=== PATIENT | male | born 1990 | race Hispanic/Latino ===

== ENCOUNTER 2018-01-16 23:51 | Observation (INO) | payer SELFPAY ==
[~2018-01-16] VITALS: Ht 182.9 cm; Wt 84.4 kg
[2018-01-17] MEDS ORDERED: SODIUM CHLORIDE 0.9% 1000ML 1,000 ML ONE (00:17)
[2018-01-17] MEDS ORDERED: KETOROLAC TROMETHAMINE 30 MG/ML VIAL ONE (00:17)
[2018-01-17] MEDS ORDERED: SODIUM CHLORIDE 0.9% 1000ML 1,000 ML IV STA (00:19)
[2018-01-17] MEDS ORDERED: HYDROMORPHONE 1MG/1ML INJ IV STA (00:19)
[2018-01-17] MEDS ORDERED: PANTOPRAZOLE 40 MG 10ML VIAL IV STA (00:19)
[2018-01-17] MEDS ORDERED: KETOROLAC TROMETHAMINE 30 MG/ML VIAL IV STA (00:19)
[2018-01-17] MEDS ORDERED: ONDANSETRON HCL 4 MG ORAL DISINTEGRATING TAB PO ONE (00:30)
[2018-01-17 00:31] LABS: BASOPHILS % 0.2 % (0.0-1.0); EOSINOPHILS % 0.1 % (0.0-6.0); HEMATOCRIT 40.3 % (38.2-49.6); HEMOGLOBIN 14.4 g/dL (14.0-18.0); LYMPHOCYTES # (AUTO) 2.3 (1.0-3.2); LYMPHOCYTES % 17.7 % (18.0-39.1); MEAN CORPUSCULAR HEMOGLOBIN 32.3 pg (28-32); MEAN CORPUSCULAR HGB CONC 35.7 g/dL (31-35); MEAN CORPUSCULAR VOLUME 90.4 fL (81-99); MONOCYTES # (AUTO) 0.6 (0.2-0.8); MONOCYTES % 4.3 % (4.4-11.3); NEUTROPHILS % 77.3 % (38.7-80.0); PLATELET COUNT 259 x10e3/uL (140-360); RED BLOOD COUNT 4.46 x10e6/uL (4.3-5.7); RED CELL DISTRIBUTION WIDTH 11.8 % (11.7-14.4)
[2018-01-17 00:54] LABS: ALANINE AMINOTRANSFERASE 28 IU/L (0-55); ALBUMIN 4.4 g/dL (3.5-5.0); ALBUMIN/GLOBULIN RATIO 1.5 (0.8-2.0); ALKALINE PHOSPHATASE 67 IU/L (40-150); ANION GAP 14.9 mmol/L (8-16); BLOOD UREA NITROGEN 19 mg/dL (7-26); BUN/CREATININE RATIO 15 (6-25); CALCIUM 9.6 mg/dL (8.4-10.2); CARBON DIOXIDE 25 mmol/L (22-29); CHLORIDE 102 mmol/L (98-107); EST GLOMERULAR FILTRATION RATE > 60 ML/MIN (60-); GLUCOSE 116 mg/dL (74-118); POTASSIUM 3.9 mmol/L (3.5-5.1); SODIUM 138 mmol/L (136-145)
[2018-01-17 00:59] LABS: MAGNESIUM 1.2 MG/DL (1.3-2.1)
[2018-01-17] MEDS ORDERED: DIAZEPAM 5 MG TAB PO STA (01:09)
--- NOTE | 2018-01-17 01:51 | Diagnostic Imaging Report ---
History: Low-back pain radiates down left lower extremity. Comparison studies: None Technique: Axial images were obtained through the lumbar spine from L1-S1. Coronal and sagittal images reconstructed from the axial data. Intravenous contrast: None Findings: The usual 5 non-rib bearing lumbar vertebral bodies are present. Alignment: Normal lordosis. No scoliosis. Soft tissues: No abnormalities. Paraspinal muscles: Unremarkable. Sacroiliac joints: No degenerative changes. Vertebrae: No fractures, infection or neoplasm. Degenerative changes: L1-L2: No abnormalities. L2-L3: No abnormalities. L3-L4: Disc bulge with superimposed 5.5 mm central/left paracentral disc protrusion effaces and indents anterior thecal sac asymmetrically and results in mild canal stenosis. Possible left lateral recess stenosis. No significant foraminal stenosis L4-L5: Disc bulge asymmetric to left without significant canal stenosis. Mild bilateral facet arthrosis. Mild bilateral foraminal stenosis. L5-S1: No abnormalities. IMPRESSION: 1. No acute lumbar spine fracture. 2. Disc bulge with superimposed 5.5 mm central/left paracentral disc protrusion results in mild canal stenosis with possible left lateral recess stenosis. This can be further evaluated with MRI of the lumbar spine without contrast. 3. Ligament, spinal cord and or vascular abnormalities cannot be excluded on the basis of this examination. Signed by: Dr. Josey Perez M.D. on 01/17/2018 1:48 AM
[2018-01-17] MEDS ORDERED: IOPAMIDOL 370 MG/ML 200 ML INFUS..BTL INJ ONE (02:13)
[2018-01-17] MEDS ORDERED: SODIUM CHLORIDE 0.9% 50ML 50 ML ONE (02:13)
[2018-01-17] MEDS ORDERED: SODIUM CHLORIDE 0.9% 1000ML 1,000 ML IV SCH (02:30)
[2018-01-17] MEDS ORDERED: HYDROMORPHONE 1MG/1ML INJ IV PRN (02:30)
[2018-01-17] MEDS ORDERED: MAGNESIUM SULFATE 2GM/50ML 50 ML IV ONE (02:30)
--- OUTSIDE RECORDS SUMMARY | 2018-01-17 02:41 | XMS REPORT ---
Author Author [facility] Address Unknown Phone Unavailable Care Team Providers Care Adventure Challenge Instructor Name Role Phone UNKNOWN, REFFERING PP Unavailable KARLENE SANDRA Unavailable Unavailable Problems This patient has no known problems. Allergies, Adverse Reactions, Alerts This patient has no known allergies or adverse reactions. Medications This patient has no known medications. Encounters Start Date/Time End Date/Time Encounter Type Admission Type Attending Clinicians Care Facility Care Department Encounter ID 2017-09-28 09:25:00 2017-09-28 09:25:00 Emergency E [facility] [id number] Results Test Description Test Time Test Comments Text Results Atomic Results Result Comments XR SPINE LUMBAR 2-3V 2017-09-28 10:30:52 LUMBAR SPINE SERIES, 3 VIEWSCLINICAL INFORMATION: PainCOMPARISON: None availableFINDINGS:AP, lateral, and spot lateral images of the lumbar spine were obtained.The vertebral body heights are normal. No fracture or malalignment isidentified. There is mild disc space narrowing at L5-S1. Thesacroiliac joints are unremarkable. The soft tissues appear normal.IMPRESSION:No fracture or malalignment.Location: R16 XR HIP 2+V, UNI.-LEFT 2017-09-28 10:21:22 XR HIP 2+V, UNI.-LEFTCLINICAL INFORMATION: Pain COMPARISONS: None available.FINDINGS:An AP image of the pelvis and a frog-leg image of the left hip weresubmitted.No acute fracture or malalignment is identified. The joint spacesappear normal. The soft tissues are unremarkable. No radiopaqueforeign body is seen.IMPRESSION: No fracture or malalignment. Location: R16 CT LUMBAR SPINE W [facility] [address], [place] [address] Patient Name: DIAMANTE GARCIA MR #: [id number] : 1990 Age/Sex: 27/M Req #: [id number] Adm Physician: Ordered by: KARLENE SANDRA MD Report #: [id number] Location: ER Room/Bed: Procedure: [id number] CT/CT LUMBAR SPINE W Exam Date: Exam Time: REPORT STATUS: Signed History: Low-back pain radiates down left lower extremity. Comparison studies: None Technique: Axial images were obtained through the lumbar spine from L1-S1. Coronal and sagittal images reconstructed from the axial data. Intravenous contrast: None Findings: The usual 5 non-rib bearing lumbar vertebral bodies are present. Alignment: Normal lordosis. No scoliosis. Soft tissues: No abnormalities. Paraspinal muscles: Unremarkable. Sacroiliac joints: No degenerative changes. Vertebrae: No fractures, infection or neoplasm. Degenerative changes: L1-L2: No abnormalities. L2-L3: No abnormalities. L3-L4: Disc bulge with superimposed 5.5 mm central/left paracentral disc protrusion effaces and indents anterior thecal sac asymmetrically and results in mild canal stenosis. Possible left lateral recess stenosis. No significant foraminal stenosis L4-L5: Disc bulge asymmetric to left without significant canal stenosis. Mild bilateral facet arthrosis. Mild bilateral foraminal stenosis. L5-S1: No abnormalities. IMPRESSION: 1. No acute lumbar spine fracture. 2. Disc bulge with superimposed 5.5 mm central/left paracentral disc protrusion results in mild canal stenosis with possible left lateral recess stenosis. This can be further evaluated with MRI of the lumbar spine without contrast. 3. Ligament, spinal cord and or vascular abnormalities cannot be excluded on the basis of this examination. Signed by: Dr. Josey Cary M.D. on 01/17/2018 1:48 AM Dictated By: JOSEY CARY MD 7 Transcribed By: TRINH on 01/17 COPY TO: KARLENE SANDRA MD
[2018-01-17 03:29] VITALS: BP 124/60
[2018-01-17 03:52] VITALS: BP 124/60
[2018-01-17 05:00] VITALS: BP 118/55
[2018-01-17] MEDS: ONDANSETRON HCL 4 MG ORAL DISINTEGRATING TAB PO PRN ×3 (06:27→15:46)
[2018-01-17] MEDS: HYDROMORPHONE 2MG/ML INJ IV PRN ×3 (06:28→15:48)
[2018-01-17 07:28] VITALS: BP 134/47
[2018-01-17 11:30] VITALS: BP 113/58
--- NOTE | 2018-01-17 14:11 | Consultation ---
DATE OF CONSULTATION: January 17, 2018 REASON FOR CONSULTATION: Left leg pain. HISTORY OF PRESENT ILLNESS: The patient is a 27-year-old man who was previously healthy. He has had one previous episode of low back pain about 6 months ago which resolved after an intramuscular steroid injection. 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 Since then the pain has radiated down the left leg to the calf. He has trouble walking due to pain although he has had no significant weakness or numbness in the leg. He had an MRI at an outpatient facility yesterday and came to the operating room last night where he was admitted. PHYSICAL EXAMINATION: He is alert and oriented. He is comfortable in bed but develops pain with standing. Straight leg raising is positive on the left at 30 degrees and negative on the right. Motor and sensory exams are entirely normal in the legs. Deep tendon reflexes are 1+ in the left patella, 2+ in the right patella, and 2+ in both Achilles tendons. Plantar responses are flexor. MRI of the lumbar spine obtained at [facility] yesterday was reviewed. This reveals a moderate size, left L3-4 disk herniation with inferior migration of the extruded disk fragment into the left L4 lateral recess. IMPRESSION: Left L4 acute radiculopathy due to left L3-4 disk herniation. Since this is the patient's first episode of lumbar radiculopathy and since it is only 2 days in duration, I recommended a trial of conservative treatment. I gave him a prescription for Sanders and a Medrol Dosepak and back exercises to do. He may follow up with me if he does not improve at which point we will consider the possibility of surgical treatment. I will sign off. Job#: [id number]
[2018-01-17 15:35] VITALS: BP 114/48
== END 2018-01-17 16:29 | disposition home or self-care (01) ==
LOC: ER 23:51 → ERHOLD 01-17 02:38 → IMCU 01-17 02:59
PROVIDERS: ADMIT Family Medicine; ATTEND Family Medicine
DX: M51.16 Intervertebral disc disorders with radiculopathy, lumbar region (principal)
CPT/HCPCS: 36415; 72132; 80053; 83735; 85025; 96374; 99284; G0378; J1170; J1885; J7030; Q9967

== ENCOUNTER 2019-12-09 21:54 | Emergency (ER) | payer OTHER ==
[~2019-12-09] VITALS: Ht 182.9 cm; Wt 84.4 kg
--- OUTSIDE RECORDS SUMMARY | 2019-12-09 21:58 | XMS REPORT ---
[facility] Address Unknown Phone Unavailable Care Team Providers Care Corporate Quality Engineer Name Role Phone HERMILO ABREU PP Cynthia SANDRA Unavailable Unavailable Payers Payer Name Policy Type Policy Number Effective Date Expiration Date [employer] Ppo [id number] Problems Condition Name Condition Details Condition Category Status Onset Date Resolution Date Last Treatment Date Treating Clinician Comments Back pain Back pain Problem Active Herniated lumbar intervertebral disc Lumbar disc herniation Problem Active Allergies, Adverse Reactions, Alerts This patient has no known allergies or adverse reactions. Medications This patient has no known medications. Procedures and Interventions Procedure Date / Time Performed Performing Clinician Computed tomography of lumbar spine with contrast 2018-01-17 00:00:00 KARLENE SANDRA Encounters Start Date/Time End Date/Time Encounter Type Admission Type Attending Clinicians Care Facility Care Department Encounter ID 2019-12-09 20:51:00 2019-12-09 20:51:00 Emergency E [facility] [id number] 2018-02-15 05:52:00 2018-02-15 05:52:00 Emergency E [facility] [id number] 2018-01-17 02:38:00 2018-01-16 23:51:00 Admitted Inpatient (obs) 1 KARLENE SANDRA [facility] [id number] 2017-09-28 09:25:00 2017-09-28 09:25:00 Emergency E [facility] [id number] Results Test Description Test Time Test Comments Text Results Atomic Results Result Comments Magnesium Level 2018-01-17 00:59:00 Magnesium Level (test cgvp=63658-2) 1.2 1.3-2.1 Sodium Mydnq2170-45-42 00:54:00* Test Item Value Reference Range Comments Sodium Level (test aazx=4836-5) 138 136-145 Potassium Kcamn5309-62-88 00:54:00* Test Item Value Reference Range Comments Potassium Level (test enpa=8275-6) 3.9 3.5-5.1 Chloride Zrlka4945-93-39 00:54:00* Test Item Value Reference Range Comments Chloride Level (test ltel=3004-7) 102 98-107 Carbon Dioxide Ingxe5076-30-57 00:54:00* Test Item Value Reference Range Comments Carbon Dioxide Level (test cqvk=8126-7) 25 22-29 Anion Ajr7199-58-13 00:54:00* Test Item Value Reference Range Comments Anion Gap (test gngn=11487-3) 14.9 8-16 Blood Urea Mdjsjdgu8329-91-13 00:54:00* Test Item Value Reference Range Comments Blood Urea Nitrogen (test wgtn=4089-7) 19 7-26 Qbljvhodcc6723-83-70 00:54:00* Test Item Value Reference Range Comments Creatinine (test uems=7264-3) 1.30 0.72-1.25 BUN/Creatinine Oykfy7780-87-03 00:54:00* Test Item Value Reference Range Comments BUN/Creatinine Ratio (test cbbg=3904-2) 15 6-25 Estimat Glomerular Filtration Olwl0174-17-79 00:54:00* Test Item Value Reference Range Comments Estimat Glomerular Filtration Rate (test shul=36226-4) 60- >60 Ranges were taken from the National Kidney Disease Education Program and the [facility] literature.Reference ranges:60 or greater: Fybdmp47-41 ( for 3 consecutive months): Chronic kidney disease 15 or less: Kidney failure Glucose Ydnan4807-48-50 00:54:00* Test Item Value Reference Range Comments Glucose Level (test obng=XEO6815) 116 74-118 Calcium Matkb1801-98-26 00:54:00* Test Item Value Reference Range Comments Calcium Level (test clua=03494-9) 9.6 8.4-10.2 Total Zbetxymaj3610-78-41 00:54:00* Test Item Value Reference Range Comments Total Bilirubin (test dxyt=9254-1) 1.2 0.2-1.2 Aspartate Amino Transf (AST/SGOT)2018-01-17 00:54:00* Test Item Value Reference Range Comments Aspartate Amino Transf (AST/SGOT) (test code=Aspartate Amino Transf (AST/SGOT)) 31 5-34 Alanine Aminotransferase (ALT/SGPT)2018-01-17 00:54:00* Test Item Value Reference Range Comments Alanine Aminotransferase (ALT/SGPT) (test ocpb=7466-8) 28 0-55 Total Vaqpgds3054-44-92 00:54:00* Test Item Value Reference Range Comments Total Protein (test fzfa=0983-9) 7.3 6.5-8.1 Nytdppy5434-55-18 00:54:00* Test Item Value Reference Range Comments Albumin (test eeky=6441-7) 4.4 3.5-5.0 Cdtqlwdi6582-96-49 00:54:00* Test Item Value Reference Range Comments Globulin (test ykrt=06109-1) 2.9 2.3-3.5 Albumin/Globulin Xpjjl2757-09-00 00:54:00* Test Item Value Reference Range Comments Albumin/Globulin Ratio (test rwxm=8110-6) 1.5 0.8-2.0 Alkaline Pbxrkrtkdfc0646-76-36 00:54:00* Test Item Value Reference Range Comments Alkaline Phosphatase (test zrxh=4469-6) 67 40-150 White Blood Hpwiw7731-80-16 00:32:00* Test Item Value Reference Range Comments White Blood Count (test nhio=5244-6) 12.92 4.8-10.8 Red Blood Wghnq5143-21-18 00:32:00* Test Item Value Reference Range Comments Red Blood Count (test ogci=994-5) 4.46 4.3-5.7 Ggmknobber6365-96-57 00:32:00* Test Item Value Reference Range Comments Hemoglobin (test bmgw=49467-4) 14.4 14.0-18.0 Axkckforxj1940-48-51 00:32:00* Test Item Value Reference Range Comments Hematocrit (test ueal=6741-2) 40.3 38.2-49.6 Mean Corpuscular Oxwchi2816-95-80 00:32:00* Test Item Value Reference Range Comments Mean Corpuscular Volume (test otfr=309-4) 90.4 81-99 Mean Corpuscular Rvqflvdfgd9380-02-25 00:32:00* Test Item Value Reference Range Comments Mean Corpuscular Hemoglobin (test orlp=593-3) 32.3 28-32 Mean Corpuscular Hemoglobin Flnqhfl2466-10-91 00:32:00* Test Item Value Reference Range Comments Mean Corpuscular Hemoglobin Concent (test irde=757-3) 35.7 31-35 Red Cell Distribution Ejhyn3572-81-92 00:32:00* Test Item Value Reference Range Comments Red Cell Distribution Width (test bahy=49536-3) 11.8 11.7-14.4 Platelet Odxlh4091-57-29 00:32:00* Test Item Value Reference Range Comments Platelet Count (test mekn=416-8) 259 140-360 Neutrophils (%) (Auto)2018-01-17 00:32:00* Test Item Value Reference Range Comments Neutrophils (%) (Auto) (test pcmb=12249-8) 77.3 38.7-80.0 Lymphocytes (%) (Auto)2018-01-17 00:32:00* Test Item Value Reference Range Comments Lymphocytes (%) (Auto) (test dglt=016-7) 17.7 18.0-39.1 Monocytes (%) (Auto)2018-01-17 00:32:00* Test Item Value Reference Range Comments Monocytes (%) (Auto) (test ivgx=9218-6) 4.3 4.4-11.3 Eosinophils (%) (Auto)2018-01-17 00:32:00* Test Item Value Reference Range Comments Eosinophils (%) (Auto) (test pepm=082-7) 0.1 0.0-6.0 Basophils (%) (Auto)2018-01-17 00:32:00* Test Item Value Reference Range Comments Basophils (%) (Auto) (test rnmy=388-0) 0.2 0.0-1.0 IM GRANULOCYTES %2018-01-17 00:32:00* Test Item Value Reference Range Comments IM GRANULOCYTES % (test code=IM GRANULOCYTES %) 0.4 0.0-1.0 Neutrophils # (Auto)2018-01-17 00:32:00* Test Item Value Reference Range Comments Neutrophils # (Auto) (test fheo=778-5) 10.0 2.1-6.9 Lymphocytes # (Auto)2018-01-17 00:32:00* Test Item Value Reference Range Comments Lymphocytes # (Auto) (test bnyv=91719-7) 2.3 1.0-3.2 Monocytes # (Auto)2018-01-17 00:32:00* Test Item Value Reference Range Comments Monocytes # (Auto) (test msfx=345-4) 0.6 0.2-0.8 Eosinophils # (Auto)2018-01-17 00:32:00* Test Item Value Reference Range Comments Eosinophils # (Auto) (test pkxx=847-3) 0.0 0.0-0.4 Basophils # (Auto)2018-01-17 00:32:00* Test Item Value Reference Range Comments Basophils # (Auto) (test rnoz=225-1) 0.0 0.0-0.1 Absolute Immature Granulocyte (btgr3155-52-06 00:32:00* Test Item Value Reference Range Comments Absolute Immature Granulocyte (auto (test code=Absolute Immature Granulocyte (auto) 0.05 0-0.1 XR SPINE LUMBAR 3-0W6311-024X7193-51-10 10:30:52LUMBAR SPINE SERIES, 3 VIEWSCLINICAL INFORMATION: PainCOMPARISON: None availableFINDINGS:AP, lateral, and spot lateral images of the lumbar spine were obtained.The vertebral body heights are normal. No fracture or malalignment isidentified. There is mild disc space narrowing at L5-S1. Thesacroiliac joints are unremarkable. The soft tissues appear normal.IMPRESSION:No fracture or malalignment.Location: R16XR HIP 2+V, UNI.-DPOJ6700-31-05 10:21:22XR HIP 2+V, UNI.-LEFTCLINICAL INFORMATION: Pain COMPARISONS: None available.FINDINGS:An AP image of the pelvis and a frog-leg image of the left hip weresubmitted.No acute fracture or malalignment is identified. The joint spacesappear normal. The soft tissues are unremarkable. No radiopaqueforeign body is seen.IMPRESSION: No fracture or malalignment. Location: R16CT LUMBAR SPINE W [facility] [address] [place] [address] Patient Name: DIAMANTE GARCIA MR #: [id number] : 1990 Age/Sex: 27/M Req #: [id number] Adm Physician: Ordered by: KARLENE SANDRA MD Report #: [id number] Location: ER Room/Bed: Procedure: [id number] CT/CT LUMBAR SPINE W E xam Date: Exam Time: REPORT STATUS: Signed History: Low-back pain radiates down left lower extremity. Comparison stud ies: None Technique: Axial images were obtained through the lumbar spine from L1-S1. Coronal and sagittal images reconstructed from the axial data. Intravenous contrast: None Findings: The usual 5 non-rib bearing lumba r vertebral bodies are present. Alignment: Normal lordosis. No scoliosis. S oft tissues: No abnormalities. Paraspinal muscles: Unremarkable. Sacroiliac joints: No degenerative changes. Vertebrae: No fractures, infection or neoplasm. Degenerative changes: L1-L2: No abnormalities. L2-L3: No abnormalities. L3-L4: Disc bulge with superimposed 5.5 mm central/ left paracentral disc protrusion effaces and indents anterior thecal sac asymm etrically and results in mild canal stenosis. Possible left lateral recess briana nosis. No significant foraminal stenosis L4-L5: Disc bulge asymmetric t o left without significant canal stenosis. Mild bilateral facet arthrosis. M ild bilateral foraminal stenosis. L5-S1: No abnormalities. IMPRES MYA: 1. No acute lumbar spine fracture. 2. Disc bulge with superimp osed 5.5 mm central/left paracentral disc protrusion results in mild canal briana nosis with possible left lateral recess stenosis. This can be further evaluate d with MRI of the lumbar spine without contrast. 3. Ligament, spinal cord and or vascular abnormalities cannot be excluded on the basis of this examina tion. Signed by: Dr. Josey Perez M.D. on 01/17/2018 1:48 AM Dict ated By: JOSEY PEREZ MD 7 COPY TO: GLADIS SANDRA MD
--- NOTE | 2019-12-10 00:22 | Diagnostic Imaging Report ---
EXAM: CT Abdomen and Pelvis WITH contrast INDICATION: Lower abdominal and rectal pain. Query appendicitis or pancreatitis. COMPARISON: None. TECHNIQUE: Abdomen and pelvis were scanned utilizing a multidetector helical scanner from the lung base to the pubic symphysis after administration of IV contrast. Coronal and sagittal reformations were obtained. Routine protocol was performed. Scan was performed during portal venous phase. IV CONTRAST: 100 cc of Isovue-370. ORAL CONTRAST: None COMPLICATIONS: None RADIATION DOSE: Total DLP: 787.3 mGy*cm Estimated effective dose: (DLP x 0.015 x size factor) mSv CTDIvol has been reviewed. It is below the limits set by the Radiation Protocol Committee (RPC). FINDINGS: LINES and TUBES: None. LOWER THORAX: Unremarkable HEPATOBILIARY: No evidence of focal lesion. No biliary ductal dilation. GALLBLADDER: No radio-opaque stones or sludge. No wall thickening. SPLEEN: No splenomegaly. PANCREAS: No focal masses or ductal dilatation. ADRENALS: No adrenal nodules KIDNEYS/URETERS: Kidneys enhance symmetrically. No evidence of hydronephrosis, solid mass, or stone. GI TRACT: No evidence of wall thickening or distension. Appendix is normal. The rectum is decompressed and unremarkable in appearance. PELVIC ORGANS/BLADDER: Unremarkable. LYMPH NODES: No lymphadenopathy. VESSELS: Unremarkable. PERITONEUM / RETROPERITONEUM: No free air or fluid. BONES AND SOFT TISSUES: Unremarkable. CONCLUSION: No acute CT abnormality in the abdomen or pelvis. No evidence of appendicitis or pancreatitis as clinically queried. Signed by: Dr. Kerry Genao MD on 12/10/2019 12:18 AM
[2019-12-10] MEDS ORDERED: DICYCLOMINE HCL 10 MG CAP ONE (00:34)
[2019-12-10] MEDS ORDERED: DICYCLOMINE HCL 20 MG TAB PO ONE (00:45)
[2019-12-10] MEDS ORDERED: DICYCLOMINE HCL20 MG PO (00:48)
[2019-12-11] MEDS ORDERED: IOPAMIDOL 370 MG/ML 200 ML INFUS..BTL INJ ONE (08:08)
[2019-12-11] MEDS ORDERED: SODIUM CHLORIDE 0.9% 50ML 50 ML ONE (08:08)
== END 2019-12-10 01:15 | disposition home or self-care (01) ==
LOC: FSED 21:54
DX: R10.30 Lower abdominal pain, unspecified (principal); K59.00 Constipation, unspecified
CPT/HCPCS: 74177; 80053; 81003; 85025; 99284